=== PATIENT | female | born 1985 | race Caucasian/White ===

== ENCOUNTER 2020-08-23 18:26 | Emergency (ER) | payer OTHER ==
[2020-08-23 22:10] LABS: Urine Blood 2+ (NEG); Urine Glucose NEGATIVE (NEG); Urine Protein NEGATIVE (NEG); Urine Specific Gravity 1.025 (1.005-1.030); Urine pH 5.5 (5.0-7.0)
[2020-08-24] MEDS ORDERED: IBUPROFEN 400 MG TAB ONE (00:15)
[2020-08-24] MEDS ORDERED: ACETAMINOPHEN 500 MG TAB ONE (00:15)
[2020-08-24 00:19] LABS: SARS-COV-2 RT PCR POSITIVE (NEGATIVE)
--- NOTE | 2020-08-24 00:27 | EDPHYS ---
Physician Documentation [facility] Name: Itzel Del Rio Age: 35 yrs Sex: Female : 1985 Arrival Date: 08/23/2020 Time: 18:31 Bed 13 Private MD: ED Physician Malik Coello HPI: 08/23 21:10 This 35 yrs old Female presents to ER via Ambulatory with complaints of Pain cp All Over, Runny Nose, Congestion. 21:10 The patient or guardian reports cough, that is intermittent. Onset: The cp symptoms/episode began/occurred 2 day(s) ago. Associated signs and symptoms: Pertinent positives: fever, sore throat, generalized pain, body aches. 21:10 Patient referred to ED for COVID-19 testing and reports needs testing before she can cp return to work. Patient also reports bilateral anterior knee pain sustained from fall directly onto knees. Historical: - Allergies: 18:50 tramadol; ll1 - PMHx: 18:50 Anxiety; Bipolar disorder; PTSD; ll1 - PSHx: 18:50 Hernia repair; Hysterectomy; ll1 - Immunization history:: Flu vaccine is not up to date. - Social history:: Smoking status: Patient reports the use of cigarette tobacco products, smokes one pack cigarettes per day. ROS: 21:15 Constitutional: Positive for body aches, chills, Negative for fever, poor PO intake. cp 21:15 Eyes: Negative for injury, pain, redness, and discharge. cp 21:15 ENT: Positive for rhinorrhea, sore throat, Negative for drainage from ear(s), ear pain, difficulty swallowing, difficulty handling secretions. 21:15 Cardiovascular: Negative for chest pain, palpitations. 21:15 Respiratory: Positive for cough, Negative for shortness of breath, wheezing. 21:15 Abdomen/GI: Negative for abdominal pain, nausea, vomiting, and diarrhea. 21:15 MS/extremity: Positive for pain, of the left knee and right knee, Negative for decreased range of motion. 21:15 Skin: Negative for rash. 21:15 Neuro: Positive for headache, Negative for altered mental status, weakness. 21:15 All other systems are negative. Exam: 21:20 Constitutional: The patient appears in no acute distress, alert, awake, non-toxic, well cp developed, well nourished, obese, uncomfortable. 21:20 Head/Face: Normocephalic, atraumatic. cp 21:20 Eyes: Periorbital structures: appear normal, Conjunctiva: normal, no exudate, no injection, Sclera: no appreciated abnormality, Lids and lashes: appear normal, bilaterally. 21:20 ENT: External ear(s): are unremarkable, Ear canal(s): are normal, clear, TM's: dullness, bilaterally, Nose: is normal, Mouth: Lips: moist, Oral mucosa: moist, Posterior pharynx: Airway: no evidence of obstruction, patent, Tonsils: no enlargement, no exudate, swelling, is not appreciated, erythema, that is mild, exudate, is not appreciated. 21:20 Neck: ROM/movement: Meningeal signs: are not present, Lymph nodes: no appreciated lymphadenopathy. 21:20 Chest/axilla: Inspection: normal, Palpation: is normal, no crepitus, no tenderness. 21:20 Cardiovascular: Rate: tachycardic, Rhythm: regular, Edema: is not appreciated. 21:20 Respiratory: the patient does not display signs of respiratory distress, Respirations: normal, no use of accessory muscles, no retractions, labored breathing, is not present, Breath sounds: are clear throughout, no decreased breath sounds, no stridor, no wheezing. 21:20 Abdomen/GI: Exam negative for discomfort, distension, guarding, Inspection: abdomen appears normal. 21:20 Back: CVA tenderness, is absent. 21:20 Musculoskeletal/extremity: Extremities: grossly normal except: noted in the anterior aspect of left knee and right knee: ecchymosis, pain, tenderness, There is no evidence of decreased ROM, deformity, ROM: limited active range of motion due to pain, in the left knee and right knee, Weight bearing: able to fully bear weight. 21:20 Skin: cellulitis, is not appreciated, no rash present. 21:20 Neuro: Orientation: is normal, Mentation: is normal, Motor: moves all fours, strength is normal. Vital Signs: 18:43 BP 113 / 71; Pulse 103; Resp 17; Temp 99.5; Pulse Ox 99% ; Weight 105.23 kg; Height 5 ll1 ft. 5 in. (165.10 cm); Pain 10/10; 23:14 BP 111 / 69; Pulse 85; Resp 16; Pulse Ox 99% on R/A; iw 18:43 Body Mass Index 38.61 (105.23 kg, 165.10 cm) ll1 Procedures: 08/24 00:00 Splinting: Splint applied to right knee using knee immobilizer, applied by nurse. cp Examined by me, post splint application: neurovascular intact, Patient tolerated well. MDM: 08/23 20:55 Patient medically screened. cp 08/24 00:25 Data reviewed: vital signs, nurses notes, lab test result(s), radiologic studies, plain cp films. 00:25 Test interpretation: by ED physician or midlevel provider: plain radiologic studies. cp Counseling: I had a detailed discussion with the patient and/or guardian regarding: the historical points, exam findings, and any diagnostic results supporting the discharge/admit diagnosis, lab results, radiology results, to return to the emergency department if symptoms worsen or persist or if there are any questions or concerns that arise at home. Response to treatment: the patient's symptoms have markedly improved after treatment. 08/23 21:04 Order name: COVID-19 : Document "Date of Symptom Onset" if Symptomatic. 08/23 21:04 Order name: Strep cp 08/23 21:32 Order name: Urine Dipstick--Ancillary (enter results) [facility] 08/23 21:32 Order name: Urine --Ancillary (enter results) [facility] 08/23 21:04 Order name: XRAY Knee RIGHT 3 view 08/23 21:04 Order name: XRAY Knee LEFT 3 view 08/23 21:04 Order name: Urine Dipstick-Ancillary (obtain specimen); Complete Time: 21:24 08/23 21:33 Order name: Urine Dipstick-Ancillary; Complete Time: 22:39 EDKS 08/23 21:33 Order name: Urine --Ancillary; Complete Time: 22:39 EDKS 08/24 00:19 Order name: COVID-19/FLU A+B; Complete Time: 00:20 EDKS 08/23 21:04 Order name: Urine Test (obtain specimen); Complete Time: 21:24 08/23 22:47 Order name: Knee Immobilizer: right knee; Complete Time: 00:06 08/23 22:47 Order name: Crutches; Complete Time: 00:07 cp Administered Medications: 00:06 Drug: Motrin 800 mg Route: PO; iw 00:40 Follow up: Response: No adverse reaction iw 00:06 Drug: Tylenol 1000 mg Route: PO; iw 00:35 Follow up: Response: No adverse reaction; Pain is decreased iw Disposition: 06:50 Co-signature as Attending Physician, Malik Coello MD I agree with the assessment and prerna plan of care. Disposition: 08/24/20 00:26 Discharged to Home. Impression: Coronavirus infection, unspecified, Displaced fracture of right tibial spine. - Condition is Stable. - Discharge Instructions: Tibial Fracture, Adult, Upper Respiratory Infection, Adult, COVID-19. - Prescriptions for Ibuprofen 800 mg Oral Tablet - take 1 tablet by ORAL route every 8 hours As needed take with food; 30 tablet. Zithromax Z- Tha 250 mg Oral Tablet - take 1 tablet by ORAL route as directed for 5 days Day 1 - take two (2) tablets one time. Day 2, 3, 4 , 5 take one (1) tablet once daily.; 6 tablet. Albuterol Sulfate 90 mcg/actuation - inhale 1-2 puff by INHALATION route every 4-6 hours; 1 Inhaler. - Work release form, Medication Reconciliation Form, Thank You Letter, Antibiotic Education, Prescription Opioid Use form. - Follow up: Private Physician; When: 2 - 3 days; Reason: Worsening of condition. - Problem is new. - Symptoms have improved. Signatures: Dispatcher [employer] EDKS Malik Coello MD MD cha Williams, Irene, RN RN Malik Remy PA PA cp Lewis, Lynsay, RN RN ll1 Corrections: (The following items were deleted from the chart) 08/23 22:25 21:04 CORONAVIRUS ordered. [facility] 22:25 21:05 Influenza Screen (A \\T\\ B)+[id number] ordered. [facility] 08/24 00:57 00:26 08/24/2020 00:26 Discharged to Home. Impression: Coronavirus infection, iw unspecified; Displaced fracture of right tibial spine. Condition is Stable. Forms are Medication Reconciliation Form, Thank You Letter, Antibiotic Education, Prescription Opioid Use. Follow up: Private Physician; When: 2 - 3 days; Reason: Worsening of condition. Problem is new. Symptoms have improved. cp
--- NOTE | 2020-08-24 00:27 | ER ---
Nurse's Notes [facility] Name: Itzel Del Rio Age: 35 yrs Sex: Female : 1985 Arrival Date: 08/23/2020 Time: 18:31 Bed 13 Private MD: Diagnosis: Coronavirus infection, unspecified;Displaced fracture of right tibial spine Presentation: 08/23 18:43 Chief complaint: Patient states: Congestion, cough, ESQUIVEL, body aches, fever of 104, ll1 fatigue, skin sensitivity and pain for 2 days, worse today. Needs covid test before returning to work. Coronavirus screen: Client denies travel out of the [place] in the last 14 days. chills, congestion, cough unrelated to allergies, difficulty breathing, fatigue, fever, headache, muscle pain, nausea, runny nose, shaking with chills, shortness of breath, sore throat, Client presents with at least one sign or symptom that may indicate coronavirus-19. Standard/surgical mask placed on the client. Ebola Screen: Patient denies travel to an Ebola-affected area in the 21 days before illness onset. Resp Distress? No respiratory distress is noted at this time. Initial Sepsis Screen: Does the patient meet any 2 criteria? HR > 90 bpm. No. Patient's initial sepsis screen is negative. Does the patient have a suspected source of infection? Yes: Productive cough/pneumonia. Risk Assessment: Do you want to hurt yourself or someone else? Patient reports no desire to harm self or others. Onset of symptoms was August 22, 2020. 18:43 Method Of Arrival: Ambulatory ll1 18:43 Acuity: HANANE 3 ll1 Historical: - Allergies: 18:50 tramadol; ll1 - PMHx: 18:50 Anxiety; Bipolar disorder; PTSD; ll1 - PSHx: 18:50 Hernia repair; Hysterectomy; ll1 - Immunization history:: Flu vaccine is not up to date. - Social history:: Smoking status: Patient reports the use of cigarette tobacco products, smokes one pack cigarettes per day. Screenin:43 Abuse screen: Denies threats or abuse. Denies injuries from another. Nutritional iw screening: No deficits noted. Tuberculosis screening: No symptoms or risk factors identified. Fall Risk None identified. Assessment: 21:43 General: Appears in no apparent distress. Behavior is calm, cooperative. General: iw Reports fever for feeling ill for fatigue for. Pain: Complains of pain in all over body. Neuro: Level of Consciousness is awake, alert, obeys commands, Oriented to person, place, time, situation. Cardiovascular: Patient's skin is warm and dry. Respiratory: Respiratory effort is even, unlabored, Respiratory pattern is regular, symmetrical, Breath sounds are clear bilaterally. GI: Reports nausea. Derm: Skin is intact, is healthy with good turgor. Musculoskeletal: Range of motion: intact in all extremities. 08/24 00:47 Reassessment: Patient appears in no apparent distress at this time. Patient and/or iw family updated on plan of care and expected duration. Pain level reassessed. Patient is alert, oriented x 3, equal unlabored respirations, skin warm/dry/pink. Vital Signs: 08/23 18:43 BP 113 / 71; Pulse 103; Resp 17; Temp 99.5; Pulse Ox 99% ; Weight 105.23 kg; Height 5 ll1 ft. 5 in. (165.10 cm); Pain 10/10; 23:14 BP 111 / 69; Pulse 85; Resp 16; Pulse Ox 99% on R/A; iw 18:43 Body Mass Index 38.61 (105.23 kg, 165.10 cm) ll1 ED Course: 18:31 Patient arrived in ED. ds1 18:49 Triage completed. ll1 18:50 Arm band placed on. ll1 20:52 Malik Cartagena PA is PHCP. cp 20:52 Malik Coello MD is Attending Physician. cp 20:58 Mel Julien, NASIM is Primary Nurse. iw 21:59 XRAY Knee RIGHT 3 view In Process Unspecified. EDMS 21:59 XRAY Knee LEFT 3 view In Process Unspecified. EDMS 08/24 00:46 No provider procedures requiring assistance completed. Patient did not have IV access iw during this emergency room visit. Administered Medications: 00:06 Drug: Motrin 800 mg Route: PO; iw 00:40 Follow up: Response: No adverse reaction iw 00:06 Drug: Tylenol 1000 mg Route: PO; iw 00:35 Follow up: Response: No adverse reaction; Pain is decreased iw Outcome: 00:26 Discharge ordered by . cp 00:57 Patient left the ED. iw Signatures: Dispatcher [employer] EDVT Josefa Ernandez ds1 Mel Julien, RN RN iw Malik Cartagena PA PA cp Lewis, Lynsay, RN RN ll1
[2020-08-24 01:01] VITALS: TEMP 99.5; O2SAT 99
[2020-08-24 01:02] VITALS: BP 111/69
--- NOTE | 2020-08-24 08:44 | RAD REPORT ---
EXAM DESCRIPTION: RAD - Knee Left 3 View - 08/23/2020 9:59 pm CLINICAL HISTORY: PAIN COMPARISON: No comparisons FINDINGS: No bone or joint abnormality is detected.
--- NOTE | 2020-08-24 08:44 | RAD REPORT ---
EXAM DESCRIPTION: RAD - Knee Right 3 View - 08/23/2020 9:59 pm CLINICAL HISTORY: PAIN COMPARISON: No comparisons FINDINGS: No fracture, dislocation or joint effusion. Chronic bony fragmentation at the tibial tuber humphrey noted.
== END 2020-08-24 00:57 | disposition home or self-care (01) ==
LOC: ER 18:26
PROC: 2W3QX1Z Immobilization of Right Lower Leg using Splint (ICD-10-PCS; principal; 2020-08-24)
DX: U07.1 COVID-19 (principal); S82.141A Displaced bicondylar fracture of right tibia, initial encounter for closed fracture; W19.XXXA Unspecified fall, initial encounter; Z88.5 Allergy status to narcotic agent; F17.210 Nicotine dependence, cigarettes, uncomplicated
CPT/HCPCS: 87070; 81025; 87081; 81003; 0240U; 73562 ×2; 99283; 29515

== ENCOUNTER 2021-01-31 02:55 | Emergency (ER) | payer OTHER ==
--- OUTSIDE RECORDS SUMMARY | 2021-01-31 02:57 | XMS REPORT | Continuity of Care Document ---
:[address] [facility] t Address [address] [place] [address] Care Team Providers Name Role Phone Tyler Renae MD Primary Care Physician Eric MONTANA Attending Clinician Kendell Kaplan Attending Clinician Mahsa Parsons MD Attending Clinician Albertina VERDIN Attending Clinician Payers Payer Name Policy Type Policy Effective Date Expiration Date Sour ce Number MEDICAID - [id number] [address] [facility] MEDICAID MGD 00:00:00 - Medical [facility] Center STAR [id number]/2020-PresentMedic aid Contracted Problems Condition Condition Condition Status Onset Resolution Last Treating Co mments Source Name Details Category Date Date Treatment Clinician Date Closed Closed Disease Active [facility] - of tibial of tibial 00:00: Medi glenroy tuberosity tuberosity 00 Ce nter , sequela , sequela Sprain of Sprain of Problem Active 2015-06 [facility] anterior Anterior 2- da cruciate Cruciate 00:00: Medica l ligament Ligament 00 Group of knee of Knee Allergies, Adverse Reactions, Alerts Allergy Allergy Status Severity Reaction(s) Onset Inactive Treating Comm ents Source Name Type Date Date Clinician Tramadol Propensi Active Hives, [facility]a [facility] - adverse Vomiting 00:00: Medical reaction 00 Center s Social History Social Habit Start Date Stop Date Quantity Comments Source Sex Assigned At [facility] Exposure to Not sure [facility] - SARS-CoV-2 (event) [facility] Cigarettes smoked 2021-01-30 2021-01-30 [facility] - current (pack per 00:00:00 00:00:00 Medical Center day) - Reported Cigarette 2021-01-30 2021-01-30 [facility] - pack-years 00:00:00 00:00:00 [facility] Tobacco use and 2021-01-30 2021-01-30 Never used [facility] - exposure 00:00:00 00:00:00 [facility] Alcohol intake 2021-01-30 2021-01-30 Ex-drinker [facility] - 00:00:00 00:00:00 (finding) [facility] Smoking Status Start Date Stop Date Source Heavy Tobacco Smoker Kerry Barnes Current every day smoker 2021-01-30 00:00:00 [facility] Medications Ordered Filled Start Stop Current Ordering Indication Dosage Frequency Signature Comments Components Source Medication Medication Date Date Medication? Clinician (SIG) Name Name ibuprofen Yes 200mg Take [address] (ADVIL,MOTR 8-24 mg by Hanna - [place]) 200 MG 13:36: mouth Medica l tablet 47 every 6 Center (six) hours as needed for Pain. aspirin-christine 2020- Yes 1{tbl} Take [address] taminophen- 8-24 -03 tablet by Fior samayoa - caffeine 00:00: 23:59 mouth Medical (Excedrin 00 :00 every 6 Center Extra (six) Strength) hours as 250-250-65 needed for mg per Pain for tablet up to 10 days. Vital Signs Vital Name Observation Time Observation Value Comments Source BP Systolic 2020-10-03 00:00:00 136 mm[Hg] [facility] Body Weight 2020-10-03 00:00:00 220 [facility]lb_av[facility] BP Diastolic 2020-10-03 00:00:00 70 mm[Hg] [facility] Height 2020-10-03 00:00:00 65 [in_i] [facility] BMI (Body Mass 2020-10-03 00:00:00 36.6 kg/m2 [facility] media intern Medical Index) Group Systolic blood 2021-01-30 10:01:00 115 mm[Hg] [facility] Diastolic blood 2021-01-30 10:01:00 72 mm[Hg] [facility] Heart rate 2021-01-30 10:01:00 80 /min [facility] Respiratory rate 2021-01-30 10:01:00 18 /min [facility] Oxygen saturation in 2021-01-30 10:01:00 99 /min [facility] - Arterial blood by Medical Ce nter Pulse oximetry Body temperature 2021-01-30 08:56:00 36.89 Alondra [facility] Body height 2021-01-30 06:41:00 165.1 cm [facility] Body weight 2021-01-30 06:41:00 102.513 kg [facility] BMI 2021-01-30 06:41:00 37.61 kg/m2 [facility] Procedures Procedure Date / Time Performed Performing Clinician Sourc e [place] FLUORO NON-SPECIFIC 2021-01-30 08:40:00 Pato Kaplan [facility] - UP TO 1 HOUR [facility] SARS-COV2/RT-PCR ([facility] & 2021-01-25 09:21:00 Pato Kaplan [facility] - REF LABS) [facility] CBC W/PLT COUNT & AUTO 2021-01-25 09:21:00 Carlton Reyes [facility] DIFFERENTIAL [facility] XR KNEE 1 OR 2 VIEWS 2020-11-21 12:03:00 Geovanna Eng [facility] RIGHT [facility] XR KNEE 1 OR 2 VIEWS 2020-10-09 14:56:[address] [facility] Plan of Care Planned Activity Planned Date Details Comments Source Future Scheduled 2021-02-07 INFLUENZA VACCINE (#1) [facility] Test 00:00:00 [code = INFLUENZA Medical Ce nter VACCINE (#1)] Future Scheduled 2020-06-[address] [facility] - Test 00:00:00 (12+) [code = Medical Center DEPRESSION SCREENING (12+)] Future Scheduled 2008-02-[address] [facility] - Test 00:00:00 malignant neoplasm of Medica l Center cervix (procedure) [code = 241121970] Future Scheduled [address] [facility] - Test 00:00:00 (procedure) [code = Medical Center 65571036] Future Scheduled 2006 DTAP/TDAP/TD VACCINES [facility] Test 00:00:00 (1 - Tdap) [code = Medical C enter DTAP/TDAP/TD VACCINES (1 - Tdap)] Future Scheduled 2005 HEPATITIS C SCREENING [facility] - Test 00:00:00 [code = HEPATITIS C Medical Center SCREENING] Future Scheduled 1999 COVID-19 VACCINE (1) [facility] - Test 00:00:00 [code = COVID-[address] VACCINE (1)] Future Scheduled [address] [facility] - Test 00:00:00 0-64 YRS (1 of 1 - Medical C enter PPSV23) [code = PNEUMOCOCCAL VACCINE 0-64 YRS (1 of 1 - PPSV23)] Encounters Start End Encounter Admission Attending Care Care Encounter Source Date/Time Date/Time Type Type Clinicians Facility Department ID 2020-10-03 2020-10-03 [facility] [employer] [place] - [id number] M atagor 00:00:00 00:00:00 Discovery jamie Oshea MD: [address] [place] [address] Group [facility] [address], [place] [address] , Ph. Results Test Description Test Time Test Comments Results Result Sourc e Comments FL, FLUORO, 2021-01-30 Reason for NON-SPECIFIC, UP 08:40:00 exam:->[facility]UR[facility]K [facility]UÁREZ : 1985 Sex: F *Fluoroscopic unit utilized for a procedure performed in the OR. No interpretation was requested. Refer to the operative report for findings. Refer to PACS for patient radiation dose information. FL fluoro 2021-01-30 Interface, External [facility] non-specific up 08:40:00 Ris In - 01/30/2021 - Medical to 1 hour 8:47 AM Center CDTFluoroscopic unit utilized for a procedure performed in the OR. No interpretation was requested. Refer to the operative report for findings. Refer to PACS for patient radiation dose information. SARS-CoV2/RT-PCR (Asymptomatic ONLY) 2021-01-25 13:10:00 Test Item Value Reference Range Interpretation Comme nts SARS-COV2/RT-PCR (test Negative Negative The S ARS-CoV-2 target code = 58231-3) nucleic acid s are not detected in thi s specimen. Nega tive results do not preclude SARS-CoV-2 infe ction and should not be u sed as the sole basis for patient management deci sions. Negative result s must be combined with c linical observations, p atient history, and epidemiological information. A false negative result may occur if a specimen i s improperly nancy ected, transported or handled. This SARS CoV-2 test is a rapid, real-niyah e RT-PCR test intended f or the qualitative det ection of nucleic acid fr om SARS-CoV-2 in a nasopharyngeal swab specimen collec imelda from individuals forrest pected of COVID-[address] [employer] [facility] ider. CAROL (test code = CAROL) This test has been authorized by FDA under an EUA for use by authorized laboratories. This test is only authorized for the duration of the declaration that circumstances exist justifying the authorization of emergency use of in vitro diagnostic tests for detection and/or diagnosis of COVID-19 under Section 564(b)(1) of the Federal Food, Drug and Cosmetic Act, 21 U.S.C. 360bbb-3(b)(1), unless the authorization is terminated or revoked sooner. Fact Sheet for Healthcare Providers: https://www.[employer] /Documents/Xpert%20Xpre ss%20SARS%20CoV-2/Fact% 20Sheets/3023802%20SAR S-COV-2%20HEALTHCARE%20 PROVIDERS%20FACT%20SHEE T.pdf Fact Sheet for Healthcare Patients: https://www.[employer] /Documents/Xpert%20Xpre ss%20SARS%20CoV-2/Fact% 20Sheets/302-3801%20SAR S-COV-2%20PATIENT%20FAC T%20SHEET.pdf Lab Interpretation (test Normal code = 83720-3) [facility]2021-01-25 13:10:00 Test Item Value Reference Range Interpretation Comments SARS-COV2/RT-PCR Negative Negative The SARS-Co V-2 target (test code = nucleic acids a re not 6381519) detected in thi s specimen. Negative result s do not preclude SARS-C oV-2 infection and s hould not be used as the heidy e basis for patient managem ent decisions. Nega tive results must be combine d with clinical observ ations, patient history , and epidemiological information. A false negativ e result may occur if a spec imen is improperly nancy ected, transported or handled. This SARS CoV-2 test is a rapid, real-niyah e RT-PCR test intended for th e qualitative detection of nu cleic acid from SARS-CoV-2 in a nasopharyngeal swab specimen collected from individuals suspected of CO VID-19 by their healthcar e provider. This test has been authorized by FDA under an EUA for use by authorized laboratories. This test is only authorized for the duration of the declaration that circumstances exist justifying the authorization of emergency use of in vitro diagnostic tests for detection and/or diagnosis of COVID-19 under Section 564(b)(1) of the Federal Food, Drug and Cosmetic Act, 21 U.S.C. 360bbb- 3(b)(1), unless the authorization is terminated or revoked sooner. Fact Sheet for Healthcare Providers: https://www.[employer]/Documents/Xpert%20Xpress%20SARS%20CoV-2/Fact%20Sheets/302-3802%20SARS-COV -2%20HEALTHCARE%20PROVIDERS%20FACT%20SHEET.pdf Fact Sheet for Healthcare Patients: https://www.[employer]/Documents/Xpert %20Xpress%20SARS%20CoV-2/Fact%20Sheets/3023801%36WZFS-YLF-4%20PATIENT%20FACT%20 SHEET.pdfCBC with platelet count + automated [id number] 09:40:00 Test Item Value Reference Range Interpretation Comments WBC (test code = 6690-2) 9.0 See_Comment [A utomated message] The system [email or web address] generated this result transmitted ref erence range: 4.0 - 10 .0 K/L. The refe rence range was not u sed to interpret this result as normal/abnor mal. RBC (test code = 789-8) 4.98 See_Comment [Au tomated message] The system [email or web address] generated this result transmitted ref erence range: 4.00 - 5 .00 M/L. The refe rence range was not u sed to interpret this result as normal/abnor mal. MCHC (test code = 786-4) 33.9 See_Comment H [A utomated message] The system [email or web address] generated this result transmitted ref erence range: 32.0 - 3 6.0 GM/DL. The refe rence range was not u sed to interpret this result as normal/abnor mal. Hematocrit (test code = 46.6 % 36-46 H 4544-3) MCV (test code = 787-2) 93.6 fL 82-99 MCH (test code = 785-6) 31.7 pg 27-33 RDW (test code = 788-0) 12.2 % 12-15 Platelets (test code = 290 See_Comment [Aut omated message] 777-3) The system [email or web address] generated this result transmitted ref erence range: 150 - 43 0 K/CU MM. The referen ce range was not u sed to interpret this result as normal/abnor mal. MPV (test code = 11.3 fL 6-11.5 01668-2) nRBC (test code = 413) 0 See_Comment [Aut omated message] The system [email or web address] generated this result transmitted ref erence range: 0 - 0 /1 00 WBC. The refere nce range was not u sed to interpret this result as normal/abnor mal. % Neutros (test code = 47 % 429) % Lymphs (test code = 44 % 430) % Monos (test code = 7 % 431) % Eos (test code = 432) 1 % % Baso (test code = 437) 1 % # Neutros (test code = 4.25 See_Comment [Aut omated message] 670) The system [email or web address] generated this result transmitted ref erence range: 1.80 - 8 .00 K/L. The refe rence range was not u sed to interpret this result as normal/abnor mal. # Lymphs (test code = 3.91 See_Comment [Auto mated message] 414) The system [email or web address] generated this result transmitted ref erence range: 1.48 - 4 .50 K/L. The refe rence range was not u sed to interpret this result as normal/abnor mal. # Monos (test code = 0.64 See_Comment [Autom ated message] 415) The system [email or web address] generated this result transmitted ref erence range: 0.00 - 1 .30 K/L. The refe rence range was not u sed to interpret this result as normal/abnor mal. # Eos (test code = 416) 0.11 See_Comment [Au tomated message] The system [email or web address] generated this result transmitted ref erence range: 0.00 - 0 .50 K/L. The refe rence range was not u sed to interpret this result as normal/abnor mal. # Baso (test code = 417) 0.06 See_Comment [A utomated message] The system whic h generated this result transmitted ref erence range: 0.00 - 0 .20 K/L. The refe rence range was not u sed to interpret this result as normal/abnor mal. Immature 0 % 0-0 Granulocytes-Relative (test code = 2801) Lab Interpretation (test Abnormal code = 71557-1) [facility] W/PLT COUNT & AUTO [id number] 09:40:00 Test Item Value Reference Range Interpretation Comments WHITE BLOOD CELL COUNT (BEAKER) 9.0 K/ L 4.0-10.0 (test code = 775) RED BLOOD CELL COUNT (BEAKER) 4.98 M/ L 4.00-5.00 (test code = 761) HEMOGLOBIN (BEAKER) (test code = 15.8 GM/DL 12.0-15.5 H 410) HEMATOCRIT (BEAKER) (test code = 46.6 % 36.0-46.0 H 411) MEAN CORPUSCULAR VOLUME (BEAKER) 93.6 fL 82.0-99.0 (test code = 753) MEAN CORPUSCULAR HEMOGLOBIN 31.7 pg 27.0-33.0 (BEAKER) (test code = 751) MEAN CORPUSCULAR HEMOGLOBIN CONC 33.9 GM/DL 32.0-36.0 (BEAKER) (test code = 752) RED CELL DISTRIBUTION WIDTH 12.2 % 12.0-15.0 (BEAKER) (test code = 412) PLATELET COUNT (BEAKER) (test 290 K/CU MM 150-430 code = 756) MEAN PLATELET VOLUME (BEAKER) 11.3 fL 6.0-11.5 (test code = 754) NUCLEATED RED BLOOD CELLS 0 /100 WBC 0-0 (BEAKER) (test code = 413) NEUTROPHILS RELATIVE PERCENT 47 % (BEAKER) (test code = 429) LYMPHOCYTES RELATIVE PERCENT 44 % (BEAKER) (test code = 430) MONOCYTES RELATIVE PERCENT 7 % (BEAKER) (test code = 431) EOSINOPHILS RELATIVE PERCENT 1 % (BEAKER) (test code = 432) BASOPHILS RELATIVE PERCENT 1 % (BEAKER) (test code = 437) NEUTROPHILS ABSOLUTE COUNT 4.25 K/ L 1.80-8.00 (BEAKER) (test code = 670) LYMPHOCYTES ABSOLUTE COUNT 3.91 K/ L 1.48-4.50 (BEAKER) (test code = 414) MONOCYTES ABSOLUTE COUNT (BEAKER) 0.64 K/ L 0.00-1.30 (test code = 415) EOSINOPHILS ABSOLUTE COUNT 0.11 K/ L 0.00-0.50 (BEAKER) (test code = 416) BASOPHILS ABSOLUTE COUNT (BEAKER) 0.06 K/ L 0.00-0.20 (test code = 417) IMMATURE GRANULOCYTES-RELATIVE 0 % 0-0 PERCENT (BEAKER) (test code = 2801) XR knee 1 or 2 views [id number] 12:03:00Lateral views at 60 and 90 degrees of the right knee are reviewed. 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 There is no change noted from her previous radiographs from 10/09/2020.[facility]
--- NOTE | 2021-01-31 03:12 | ER ---
Nurse's Notes [facility] Name: Itzel Del Rio Age: 35 yrs Sex: Female : 1985 Arrival Date: 01/31/2021 Time: 02:56 Bed Waiting Private MD: Diagnosis: Presentation: 01/31 03:11 Note notified by registration pt did not want to wait so she left the ED. bb ED Course: 02:56 Patient arrived in ED. bp1 Administered Medications: No medications were administered Outcome: 03:12 Patient left the ED. bb Signatures: Sarah Shaw RN RN bb Radha Nowak bp1
== END 2021-01-31 03:12 | disposition left against medical advice (07) ==
LOC: ER 02:55
DX: Z02.9 Encounter for administrative examinations, unspecified (principal)

== ENCOUNTER 2022-05-02 20:55 | Emergency (ER) | payer OTHER ==
--- OUTSIDE RECORDS SUMMARY | 2022-05-02 20:59 | XMS REPORT | Continuity of Care Document ---
:1985 Author Organization [facility] t Address [address] [place] [address] Care Team Providers Name Role Phone LUZ MILLS Primary Care Physician Unavailable RAJEEV POE Attending Clinician Unavailable A_Bykevin Attending Clinician Unavailable Rajeev Poe Attending Clinician ISABEL Attending Clinician Unavailable Anderson Attending Clinician Unavailable AQUILINO JI Attending Clinician Unavailable Eric [place], Carlton Attending Clinician Chace Parsons MD Attending Clinician Aquilino Kovacs Attending Clinician Estephania Attending Clinician Unavailable Venkat_Valentin Attending Clinician Unavailable RAJEEV POE Admitting Clinician Unavailable Freddie_Bykevin Admitting Clinician Unavailable ISABEL Admitting Clinician Unavailable Ya_Olivia Admitting Clinician Unavailable Estephania Admitting Clinician Unavailable Brigid Admitting Clinician Unavailable Payers Payer Name Policy Type Policy Number Effective Date Expiration Date Maribell mckeon [facility] [id number] 2020 PLAN 00:00:00 [facility] [id number] 2015 COMMUNITY PL[place] OF 00:[place]00 [place] Problems Condition Condition Condition Status Onset Resolution Last Treating Co mments Source Name Details Category Date Date Treatment Clinician Date Insect Insect Problem Active [place] to Bite to 4-28 da leg - Leg - 00:00: Medical nonvenomou Nonvenomou 00 Gr oup s s Edema of Edema of Problem Active [place] lower Lower 4-20 da extremity Extremity 00:00: Medi [place]en[place] 00 Group Dyspnea Dyspnea Problem Active [place] 4-20 da 00:00: Medical 00 Group Cigarette Cigarette Problem Active [place] smoker Smoker 4-20 da 00:00: Medical 00 Group Body mass Body Mass Problem Active [place] index 30+ Index 30+ 4-20 da - obesity - Obesity 00:00: Medi [place] 00 Group Closed Closed Disease Active [facility] tibial of tibial 00:00: Medi [place] tuberosity tuberosity 00 Ce nter , sequela , sequela Sprain of Sprain of Problem Active 2015-06 [place] anterior Anterior 2-01 da cruciate Cruciate 00:00: Medica l ligament Ligament 00 Group of knee of Knee Bipolar Bipolar Problem Active [place] disorder Disorder da Medical Group Depressive Depressive Problem Active M [facility] disorder Disorder da [facility] Allergies, Adverse Reactions, Alerts Allergy Allergy Status Severity Reaction(s) Onset Inactive Treating Comm ents Source Name Type Date Date Clinician Tramadol Propensi Active Hives, [facility] to Nausea And 5-03 [facility] adverse Vomiting 00:00: Medical reaction 00 Center s TRAMADOL Allergy Active High Hives [facility] 5-03 00:00: 00 Tramadol Allergy Active Severe, Hives, [place] to Severe Vomiting da substan Medical e Group Social History Social Habit Start Date Stop Date Quantity Comments Source Exposure to Not sure [facility] SARS-CoV-2 (event) Medica [facility] Alcohol intake 2022-04-01 2022-04-01 Ex-drinker [facility] 00:[facility]:00 00:00:00 (finding) [facility] [place] Tobacco use and 2020-10-09 2020-10-[address] [facility] [address] Fior kes exposure 00:00:00 00:00:00 [facility] [place] Cigarettes smoked 2020-10-09 2020-10-09 NARCISO Cristina current (pack per 00:00:00 00:00:00 Medical Center day) - Reported Cigarette 2020-10-09 2020-10-[address] [facility] pack-years 00:00:00 00:00:00 [facility] Center Sex Assigned At [birth year] [facility] yao 00:00:00 00:00:00 Medical Center Smoking Status Start Date Stop Date Source Heavy Tobacco Smoker Kerry Barnes Current every day smoker 2020-10-09 00:00:00 [facility] Medications Ordered Filled Start Stop Current Ordering Indication Dosage Frequency Signature Comments Components Source Medication Medication Date Date Medication? Clinician (SIG) Name Name ibuprofen 2020-06 Yes 200mg Take [address] [facility] (ADVIL,MOTR 0-22 mg by F[place]) 200 MG 14:21: mouth Medica l tablet 21 every 6 Center (six) hours as needed for Pain. triamcinolo S/p tibial Q.5D Apply [facility] ne 02-08 fracture topically [facility] (KENALOG) 00:00: 23:59 2 (two) Medi [place]en[place] 0.1 % 00 :00 times Center topical daily. ointment HYDROcodone Yes Closed 1{tbl} Take 1-[address] -acetaminop 8-31 fracture of tablets by Hanna hen (NORCO 00:00: tibial mouth Medi glenroy 10-325) 00 tuberosity, every 6 Ce nter 10-325 mg sequela (six) per tablet hours as needed for Pain for up to 10 doses. Max Daily Amount: 8 tablets ibuprofen Yes 200mg Take [address] (ADVIL,MOTR 8-24 mg by [place]) 200 MG 13:36: mouth Medica l tablet 47 every 6 Center (six) hours as needed for Pain. aspirin-christine 2020- No 1{tbl} Take [address] taminophen- 8-24 02-09 tablet by Fior samayoa caffeine 00:00: 23:59 mouth Medical (Excedrin 00 :00 every 6 Center Extra (six) Strength) hours as 250-250-65 needed for mg per Pain for tablet up to 10 days. acetaminoph acetaminoph No acetaminop [place] en 300 en 300 hen 300 da mg-codeine mg-codeine mg-codeine Medical 30 mg 30 mg 30 mg Group tablet 1-2 tablet 1-2 tablet 1-2 tabs p.o. q tabs p.o. q tabs p.o. 6 hours PRN 6 hours PRN q 6 hours pain pain PRN pain amoxicillin amoxicillin No amoxicilli [place] [phone] 875 da mg-potassiu mg-potassiu mg-potassi Medical m m um Group clavulanate clavulanate clavulanat 125 mg 125 mg e 125 mg tablet Take tablet Take tablet 1 tablet 1 tablet Take 1 every 12 every 12 tablet hours by hours by every 12 oral route oral route hours by for 7 days. for 7 days. oral route for 7 days. gabapentin gabapentin No 1capsul BID gabapentin [place] 300 mg 300 mg e(s) 300 mg da capsule capsule capsule Medica l Take 1 Take 1 Take 1 Group capsule capsule capsule twice a day twice a day twice a by oral by oral day by route for route for oral route 30 days. 30 days. for 30 days. ibuprofen ibuprofen No ibuprofen [place] 800 mg 800 mg 800 mg da tablet Take tablet Take tablet Medical 1 tablet 1 tablet Take 1 Group every 8 every 8 tablet hours by hours by every 8 oral route oral route hours by for 15 for 15 oral route days. days. for 15 days. sulfamethox sulfamethox No sulfametho [place] azole 800 azole 800 xazole 800 da mg-trimetho mg-trimetho mg-trimeth Medical prim 160 mg prim 160 mg oprim 160 Group tablet Take tablet Take mg tablet 1 tablet 1 tablet Take 1 every 12 every 12 tablet hours by hours by every 12 oral route oral route hours by for 10 for 10 oral route days. days. for 10 days. Trileptal Trileptal No 1 BID Trileptal [place] 300 mg 300 mg 300 mg da tablet Take tablet Take tablet Medical 1 tablet 1 tablet Take 1 Group twice a day twice a day tablet by oral by oral twice a route. route. day by oral route. Zoloft 50 Zoloft 50 No 1 BID Zoloft 50 [place] mg tablet mg tablet mg tablet da Take 1 Take 1 Take 1 Medical tablet tablet tablet Group twice a day twice a day twice a by oral by oral day by route. route. oral route. Vital Signs Vital Name Observation Time Observation Value Comments Source HEIGHT 2021-01-30 06:41:00 165.1 cm WEIGHT 2021-01-30 06:41:00 102.513 kg WEIGHT 2021-01-23 08:48:00 102.513 kg HEIGHT 2021-01-23 08:48:00 165.1 cm BP Diastolic 2021-10-04 00:00:00 78 mm[Hg] [facility] Height 2021-10-04 00:00:00 65 [in_i] [facility] BMI (Body Mass 2021-10-04 00:00:00 45.6 kg/m2 [facility] Medical Index) Group BP Systolic 2021-10-04 00:00:00 117 mm[Hg] [facility] Body Weight 2021-10-04 00:00:00 4384 [oz_av] [facility] BP Diastolic 2021-09-28 00:00:00 72 mm[Hg] [facility] Height 2021-09-28 00:00:00 65 [in_i] [facility] BMI (Body Mass 2021-09-28 00:00:00 45.6 kg/m2 [facility] Medical Index) Group BP Systolic 2021-09-28 00:00:00 118 mm[Hg] [facility] Body Weight 2021-09-28 00:00:00 4384 [oz_av] [facility] BP Diastolic 2021-09-26 00:00:00 80 mm[Hg] [facility] Height 2021-09-26 00:00:00 65 [in_i] [facility] BMI (Body Mass 2021-09-26 00:00:00 45.6 kg/m2 [facility] Medical Index) Group BP Systolic 2021-09-26 00:00:00 120 mm[Hg] [facility] Body Weight 2021-09-26 00:00:00 4384 [oz_av] [facility] BP Diastolic 2021-07-04 00:00:00 81 mm[Hg] [facility] Height 2021-07-04 00:00:00 65 [in_i] [facility] BMI (Body Mass 2021-07-04 00:00:00 40.8 kg/m2 [facility] Medical Index) Group BP Systolic 2021-07-04 00:00:00 124 mm[Hg] [facility] Body Weight 2021-07-04 00:00:00 245.2 [facility]lb_av] [facility] BP Diastolic 2021-04-17 00:00:00 80 mm[Hg] [facility] Height 2021-04-17 00:00:00 65 [in_i] [facility] BMI (Body Mass 2021-04-17 00:00:00 39.1 kg/m2 [facility] Medical Index) Group BP Systolic 2021-04-17 00:00:00 117 mm[Hg] [facility] Body Weight 2021-04-17 00:00:00 235.2 [lb_av] [facility] HEIGHT 2021-02-23 10:38:00 165.1 cm WEIGHT 2021-02-23 10:38:00 105.235 kg HEIGHT 2021-02-08 15:42:00 165.1 cm WEIGHT 2021-02-08 15:42:00 106.595 kg HEIGHT 2021-01-30 06:41:00 165.1 cm WEIGHT 2021-01-30 06:41:00 102.513 kg WEIGHT 2021-01-23 08:48:00 102.513 kg HEIGHT 2021-01-23 08:48:00 165.1 cm WEIGHT 2020-12-15 10:17:00 105.688 kg HEIGHT 2020-12-15 10:17:00 165.1 cm HEIGHT 2020-11-21 09:57:00 165.1 cm WEIGHT 2020-11-21 09:57:00 104.327 kg HEIGHT 2020-10-09 10:02:00 165.1 cm WEIGHT 2020-10-09 10:02:00 98.431 kg BP Diastolic 2020-10-03 00:00:00 70 mm[Hg] [facility] Height 2020-10-03 00:00:00 65 [in_i] [facility] BMI (Body Mass 2020-10-03 00:00:00 36.6 kg/m2 [facility]) Group BP Systolic 2020-10-03 00:00:00 136 mm[Hg] [facility] Body Weight 2020-10-03 00:00:00 220 [lb_av] [facility] Systolic blood 2022-04-01 08:06:00 112 mm[Hg] [facility] Diastolic blood 2022-04-01 08:06:00 86 mm[Hg] [facility] Heart rate 2022-04-01 08:06:00 108 /min [facility] Body temperature 2022-04-01 08:06:00 36.67 [facility] Body height 2022-04-01 08:06:00 165.1 cm [facility] Body weight 2022-04-01 08:06:00 105.235 kg [facility] BMI 2022-04-01 08:06:00 38.61 kg/m2 [facility] Systolic blood 2021-01-30 10:01:00 115 mm[Hg] [facility] Diastolic blood 2021-01-30 10:01:00 72 mm[Hg] [facility] Heart rate 2021-01-30 10:01:00 80 /min [facility] Respiratory rate 2021-01-30 10:01:00 18 /min [facility] Oxygen saturation in 2021-01-30 10:01:00 99 /min [facility] Arterial blood by Medical Ce nter Pulse oximetry Body temperature 2021-01-30 08:56:00 36.89 [facility] Body height 2021-01-30 06:41:00 165.1 cm [facility] Body weight 2021-01-30 06:41:00 102.513 kg [facility] BMI 2021-01-30 06:41:00 37.61 kg/m2 [facility] Procedures Procedure Date / Time Performing Clinician Source Performed unlisted imaging order 2021-09-26 00:00:00 Tommie Sanders [facility] US, transvaginal 2021-07-04 00:00:00 Kerry menezes Group [place] FLUORO NON-SPECIFIC 2021-01-30 08:40:00 Rajeev Poe [place] [facility] UP TO 1 HOUR Center SARS-COV2/RT-PCR ([facility] & 2021-01-25 09:21:00 Rajeev Poe [place] [facility] REF LABS) Center CBC W/PLT COUNT & AUTO 2021-01-25 09:21:00 Carlton Reyes [place] [facility] DIFFERENTIAL Center XR KNEE 1 OR 2 VIEWS 2020-11-21 12:03:00 Cadenceasuncion Aquilino [facility] [place] [facility] RIGHT Center XR KNEE 1 OR 2 VIEWS 2020-10-09 14:56[facility] [place] [facility] RIGHT Center Knee Arthroscopy/surgery [facility] Plan of Care Planned Activity Planned Date Details Comments Source Future Scheduled 2022-02-07 INFLUENZA VACCINE (#1) [facility] 00:00:00 [code = INFLUENZA Medical Ce nter VACCINE (#1)] Future Scheduled 2021-06-[address] [facility] Test 00:00:00 (12+) [code = [facility] Center DEPRESSION SCREENING (12+)] Future Scheduled 2021-02-07 INFLUENZA VACCINE (#1) [facility] Test 00:00:00 [code = INFLUENZA Medical Ce nter VACCINE (#1)] Future Scheduled 2020-06-[address] [facility] Test 00:00:00 (12+) [code = [facility] Center DEPRESSION SCREENING (12+)] Future Scheduled 2008-02-[address] [facility] Test 00:00:00 malignant neoplasm of Medica l Center cervix (procedure) [code = 452868842] Future Scheduled 2008-02-[address] [facility] Test 00:00:00 malignant neoplasm of Medica l Center cervix (procedure) [code = 900272378] Future Scheduled [address] [facility] Test 00:00:00 (procedure) [code = [facility] 53220946] Future Scheduled [address] [facility] Test 00:00:00 (procedure) [code = Medical Center 23408743] Future Scheduled 2006 DTAP/TDAP/TD VACCINES [facility] Test 00:00:00 (1 - Tdap) [code = Medical C enter DTAP/TDAP/TD VACCINES (1 - Tdap)] Future Scheduled 2006 DTAP/TDAP/TD VACCINES [facility] Test 00:00:00 (1 - Tdap) [code = Medical C enter DTAP/TDAP/TD VACCINES (1 - Tdap)] Future Scheduled 2005 HEPATITIS C SCREENING [facility] Test 00:00:00 [code = HEPATITIS C Medical Center SCREENING] Future Scheduled 2005 HEPATITIS C [facility]CRE[facility]ING [facility] Test 00:00:00 [code = HEPATITIS C Medical Center SCREENING] Future Scheduled 1999 COVID-19 VACCINE (1) [facility] Test 00:00:00 [code = COVID-[address] VACCINE (1)] Future Scheduled [address] [facility] Test 00:00:00 Counseling and Medical Cente r Screening (12+) [code = Tobacco Cessation Counseling and Screening (12+)] Future Scheduled [address] [facility] Test 00:00:00 0-64 YRS (1 of 1 - Medical C enter PPSV23) [code = PNEUMOCOCCAL VACCINE 0-64 YRS (1 of 1 - PPSV23)] Future Scheduled [address] [facility] Test 00:00:00 0-64 YRS (1 - PCV) Medical C enter [code = PNEUMOCOCCAL VACCINE 0-64 YRS (1 - PCV)] Future Scheduled 1987 COVID-19 VACCINE (#1) [facility] Test 00:00:00 [code = COVID-[address] VACCINE (#1)] Encounters Start End Encounter Admission Attending Care Care Encounter Source Date/Time Date/Time Type Type Clinicians Facility Department ID 2021-03-18 Outpatient LUI, [facility] Surgery [id number] [facility] 07:00:53 RAJEEV 2022-04-23 2022-04-23 [id number] [place] 00:00:00 00:00:00 1115 [facility] Group 2022-04-01 2022-04-01 Travel [facility] [id number] [facility] 00[facility]00 [facility] 2022-03-30 2022-03-30 Outpatient EL LUI, [facility] [id number] 15:50:00 16:01:[address] [place] [address] 2022-03-20 2022-03-30 Office Lui, [facility] [id number] 08:30:00 16:01:12 Visit Rajeev 2 [facility] 2021-12-18 2021-12-18 Outpatient DESAI_[facility] [id number] [place] 02:39:00 02:39:00 H 0712 [facility] Program 2021-10-04 2021-10-04 Outpatient A_Byrd [facility] [id number] [place] 12:07:00 12:07:00 0428 Medical Group 2021-10-04 2021-10-04 Luz Dickens [facility] [place] - [id number] M at[facility]or 00:00:00 00:00:00 MD Oc: Discovery ayala [address] [place] [phone] , Ph. 2021-10-01 2021-10-01 Outpatient A_Byrd [facility] [id number] [place] 06:49:00 06:49:00 0425 Medical Group 2021-09-28 2021-09-28 Outpatient A_Byrd [facility] [id number] [place] 04:20:00 04:20:00 0422 [facility] Group 2021-09-28 2021-09-28 Liane [facility] [place] - [id number] M at[place] 00:00:00 00:00:00 Karon Sesay [facility]: [address] [place] [phone] , Ph. 2021-09-26 2021-09-26 Outpatient A_Byrd [facility] [id number] [place] 11:16:00 11:16:00 0420 [facility] 2021-09-26 2021-09-26 Luz Chrissie [facility]G [place] - [id number] M at[place] 00:00:00 00:00:00 MD Oc: Discovery ayala [address] [place] [address] - [address] [phone] , Ph. 2021-07-04 2021-07-04 Outpatient Rutledge_L MMG MMG [id number] [place] 05:29:00 05:29:00 0126 Medical Group 2021-07-04 2021-07-04 Outpatient Rutledge_L MMG MMG [id number] [place] 05:29:00 05:29:00 0128 da Medical Group 2021-07-04 2021-07-04 Outpatient Rutledge_L MMG MMG [id number] [place] 05:29:00 05:29:00 0413 Medical Group 2021-07-04 2021-07-04 Tara [facility] [place] - [id number] M at[place] 00:00:00 00:00:00 Discovery jamie Lorenz [facility]-: [address], [place] [address] , Ph. [phone] 2021-06-18 2021-06-18 Outpatient Rutledge_L MMG MMG [id number] [place] 02:53:00 02:53:00 0110 Medical Group 2021-05-07 2021-05-[address] [facility] [id number] 00:00:00 00:00:00 Only [facility] 2021-05-07 2021-05-[address] [facility] [id number] 00:00:00 00:00:00 [facility] 2021-04-17 2021-04-17 Outpatient Rutledge_L MMG MMG [id number] [place] 02:25:00 02:25:00 1109 [facility] 2021-04-17 2021-04-17 Yessenia MMG [place] - [id number] M atagor 00:00:00 00:00:00 Marilyn Garcia Medica olivia [place]: [address] [facility] [address], [place] [address] , Ph. [phone] 2021-04-16 2021-04-16 Outpatient Ya_Olivia MMG MM [id number] [facility] 09:41:00 09:41:00 1108 [facility] 2021-04-13 2021-04-13 Outpatient SANDESARA, [facility] [id number] 00:00:00 00:00:00 [facility] 2021-03-30 2021-03-30 Outpatient FOREIGNESARA, [facility] [id number] 13:33:55 14:30:09 [facility] 2021-03-23 2021-03-23 Outpatient SANDESARA, [facility] [id number] 00:00:00 00:00:00 [facility] 2021-02-23 2021-02-23 Outpatient SANDESARA, [facility] [id number] 00:00:00 00:00:00 [facility] 2021-02-13 2021-02-13 Outpatient FOREIGNESARA, [facility] [id number] 00:00:00 00:00:00 [facility] 2021 2021 Outpatient LUI, [facility] [id number] 00:00:00 00:00:00 [facility] 2021-02-08 2021-02-08 Outpatient LUI, [facility] [id number] 00:00:00 00:00:00 [facility] 2021-01-25 2021-01-25 Outpatient EL SLSL [facility] [id number] [facility] 00:00:00 00:00:00 2020-12-05 2020-12-05 Outpatient A_Byrd MMG MMG [id number] [place] 05:54:00 05:54:00 0629 [facility] 2020-11-24 2020-11-24 Outpatient cMcDonald MMG MMG [id number] [place] 03:02:00 03:02:00 0618 [facility] 2020-10-04 2020-10-04 Outpatient cMcDonald MMG MMG [id number] [place] 04:10:00 04:10:00 0428 [facility] 2020-10-03 2020-10-03 Outpatient cMcDonald MMG MMG [id number] [place] 04:02:00 04:02:00 0427 [facility] 2020-10-03 2020-10-03 Dimitry MM [place] - [id number] M atagor 00:00:00 00:00:00 Discovery jamie Oshea MD: [address] [facility] [address], [place] [address] , Ph. 2020-08-31 2020-08-31 [place] [id number] [place] 12:36:00 12:36:00 0325 [facility] 2020-07-07 2020-07-07 Outpatient Rutledge_L MMG MMG [id number] [place] 02:40:00 02:40:00 0129 [facility] 2020-07-07 2020-07-07 Outpatient Rutledge_L MMG MMG [id number] [place] 02:40:00 02:40:00 0323 [facility] 2020-03-28 2020-03-28 Outpatient A_Byrd MMG MMG [id number] [place] 09:25:00 09:25:00 1020 [facility] 2020-03-22 2020-03-22 Outpatient C_Hall MMG MMG [id number] [place] 03:06:00 03:06:00 1014 [facility] Results Test Description Test Time Test Comments Results Result Comments Source Urinalysis complete W Reflex Culture panel - Urine 2021-09-08 0 07:30:00 Test Item Value Reference Range Interpretation Comme nts Color of Urine by Auto (test code = 92320-7) light yellow Appearance of Urine (test code = 5767-9) clear clear Glucose [Presence] in Urine by Automated test strip negative ne gative (test code = 45430-6) Bilirubin.total [Mass/volume] in Urine (test code = negative ne gative 1977-11) Ketones [Mass/volume] in Urine by Automated test strip negative negative (test code = 89093-8) Specific gravity of Urine by Automated test strip (test 1.026 1.003-1.030 code = 69144-4) blood urine (test code = blood urine) negative negative pH of Urine (test code = 2756-5) 7.500 5-9 protein urine (UA) (test code = protein urine (UA)) negative ne gative Urobilinogen [Presence] in Urine (test code = 93000-6) normal 0.2-1.0 Nitrite [Presence] in Urine by Test strip (test code = positive negative H 5802-4) Leukocyte esterase [Presence] in Urine by Automated =1 ne gative H test strip (test code = 95258-5) Erythrocytes [#/volume] in Urine by Automated count =15-19 0- 5 H (test code = 798-9) Leukocytes [#/area] in Urine sediment by Automated =15-19 0-5 H count (test code = 55837-6) Epithelial cells [Presence] in Urine sediment by Light =6-10 0-5 microscopy (test code = 94953-7) Bacteria identified in Urine by Culture (test code = tntc (4 n one detect H 630-4) Casts [#/area] in Urine sediment by Automated count none detected n one detect (test code = 58523-3) urine culture added? (test code = urine culture added?) yes [facility] - Serum or Plasma 2021-09-26 07:30:00 Test Item Value Reference Range Interpretation Comments glucose (test code = glucose) 103 mg/dL 74-106 Urea nitrogen [Mass/volume] in 15 mg/dL 6-20 Serum or Plasma (test code = 3094-0) osmolality calculated,serum (test 275 mOsm/kg 280-300 L code = osmolality calculated,serum) creatinine (test code = 0.65 mg/dL 0.50-0.90 creatinine) glomerular filtration rate (test >60.00 code = glomerular filtration rate) Urea nitrogen/Creatinine [Mass 23.1 12.0-20.0 H Ratio] in Serum or Plasma (test code = 3097-3) sodium level (test code = sodium 137 mmol/L 135-145 level) Potassium [Moles/volume] in Body 4.3 mmol/L 3.5-5.2 fluid (test code = 2821-7) chloride level (test code = 106 mmol/L 98-108 chloride level) CO2 (test code = CO2) 21 mmol/L 21-32 anion gap (test code = anion gap) 14.3 mEq/L 12.0-20.0 calcium level (test code = 8.6 mg/dL 8.6-10.0 calcium level) total protein (test code = total 6.9 g/dL 6.6-8.7 protein) albumin (test code = albumin) 4.3 g/dL 3.5-5.2 globulin (test code = globulin) 2.6 g/dL 1.5-4.5 A/G ratio (test code = A/G ratio) 1.7 >1.0 bilirubin,total (test code = 0.4 mg/dL 0.0-1.2 bilirubin,total) AST/SGOT (test code = AST/SGOT) 16 U/L 15-32 Alanine aminotransferase 13 U/L 0-33 [Enzymatic activity/volume] in Serum or Plasma (test code = 1742-6) Alkaline phosphatase [Enzymatic 77 U/L 35-105 activity/volume] in Serum or Plasma (test code = 6768-6) [facility] - Serum or Getaup0278-31-28 07:30:00 Test Item Value Reference Range Interpretation Comments cholesterol level (test code = 139 mg/dL 150-200 L cholesterol level) triglycerides level (test code = 49 mg/dL <150 triglycerides level) HDL cholesterol (test code = HDL 60 mg/dL >65 L cholesterol) LDL cholesterol direct (test code = 75 mg/dL <100 LDL cholesterol direct) cholesterol risk ratio (test code = 2.316 cholesterol risk ratio) [facility] W Reflex Culture panel - Urine 2021-09-26 07:30:00 Test Item Value Reference Range Interpretation Comments Color of Urine by Auto (test light yellow code = 65771-7) Appearance of Urine (test code clear clear = 5767-9) Glucose [Presence] in Urine by negative negative Automated test strip (test code = 16082-0) Bilirubin.total [Mass/volume] negative negative in Urine (test code = 1978-6) Ketones [Mass/volume] in Urine negative negative by Automated test strip (test code = 75448-0) Specific gravity of Urine by 1.026 1.003-1.030 Automated test strip (test code = 49343-2) blood urine (test code = blood negative negative urine) pH of Urine (test code = 7.500 5-9 2756-5) protein urine (UA) (test code = negative negative protein urine (UA)) Urobilinogen [Presence] in normal 0.2-1.0 Urine (test code = 61423-7) Nitrite [Presence] in Urine by positive negative H Test strip (test code = 5802-4) Leukocyte esterase [Presence] =1 negative H in Urine by Automated test strip (test code = 19432-3) Erythrocytes [#/volume] in =15-19 0-5 H Urine by Automated count (test code = 798-9) Leukocytes [#/area] in Urine =15-19 0-5 H sediment by Automated count (test code = 97618-2) Epithelial cells [Presence] in =6-10 0-5 Urine sediment by Light microscopy (test code = 28941-8) Bacteria identified in Urine by tntc (4 none detect H Culture (test code = 630-4) Casts [#/area] in Urine none detected none detect sediment by Automated count (test code = 73863-5) urine culture added? (test code yes = urine culture added?) [facility] GroupBacteria identified in Urine by [id number] 07:30:00Bacteria Ur CultMatarda Medical GroupComprehensive metabolic 2000 panel - Serum or [id number] 07:30:00 Test Item Value Reference Range Interpretation Comments glucose (test code = glucose) 103 mg/dL 74-106 Urea nitrogen [Mass/volume] in 15 mg/dL 6-20 Serum or Plasma (test code = 3094-0) osmolality calculated,serum (test 275 mOsm/kg 280-300 L code = osmolality calculated,serum) creatinine (test code = 0.65 mg/dL 0.50-0.90 creatinine) glomerular filtration rate (test >60.00 code = glomerular filtration rate) Urea nitrogen/Creatinine [Mass 23.1 12.0-20.0 H Ratio] in Serum or Plasma (test code = 3097-3) sodium level (test code = sodium 137 mmol/L 135-145 level) Potassium [Moles/volume] in Body 4.3 mmol/L 3.5-5.2 fluid (test code = 2821-7) chloride level (test code = 106 mmol/L 98-108 chloride level) CO2 (test code = CO2) 21 mmol/L 21-32 anion gap (test code = anion gap) 14.3 mEq/L 12.0-20.0 calcium level (test code = 8.6 mg/dL 8.6-10.0 calcium level) total protein (test code = total 6.9 g/dL 6.6-8.7 protein) albumin (test code = albumin) 4.3 g/dL 3.5-5.2 globulin (test code = globulin) 2.6 g/dL 1.5-4.5 A/G ratio (test code = A/G ratio) 1.7 >1.0 bilirubin,total (test code = 0.4 mg/dL 0.0-1.2 bilirubin,total) AST/SGOT (test code = AST/SGOT) 16 U/L 15-32 Alanine aminotransferase 13 U/L 0-33 [Enzymatic activity/volume] in Serum or Plasma (test code = 1742-6) Alkaline phosphatase [Enzymatic 77 U/L 35-105 activity/volume] in Serum or Plasma (test code = 6768-6) [facility] - [facility] or [id number] 07:30:00 Test Item Value Reference Range Interpretation Comments cholesterol level (test code = 139 mg/dL 150-200 L cholesterol level) triglycerides level (test code = 49 mg/dL <150 triglycerides level) HDL cholesterol (test code = HDL 60 mg/dL >65 L cholesterol) LDL cholesterol direct (test code = 75 mg/dL <100 LDL cholesterol direct) cholesterol risk ratio (test code = 2.316 cholesterol risk ratio) [facility], [id number] 07:30:00 Test Item Value Reference Range Interpretation Comments Gentamicin [Susceptibility] by <=2 Minimum inhibitory concentration (CELIA) (test code = 267-5) Ampicillin [Susceptibility] by >16 Minimum inhibitory concentration (CELIA) (test code = 28-1) Cefazolin [Susceptibility] by >16 Minimum inhibitory concentration (CELIA) (test code = 76-0) Trimethoprim+Sulfamethoxazole =2/38 [Susceptibility] by Minimum inhibitory concentration (CELIA) (test code = 516-5) Tetracycline [Susceptibility] by >8 Minimum inhibitory concentration (CELIA) (test code = 496-0) Amoxicillin+Clavulanate =4/2 [Susceptibility] by Minimum inhibitory concentration (CELIA) (test code = 20-8) Tobramycin [Susceptibility] by <=2 Minimum inhibitory concentration (CELIA) (test code = 508-2) Nitrofurantoin [Susceptibility] by <=16 Minimum inhibitory concentration (CELIA) (test code = 363-2) cefOXitin [Susceptibility] by <=4 Minimum inhibitory concentration (CELIA) (test code = 116-4) levoFLOXacin [Susceptibility] by >4 Minimum inhibitory concentration (CELIA) (test code = 94876-2) cefTAZidime [Susceptibility] by 4 ug/mL Minimum inhibitory concentration (CELIA) (test code = 133-9) cefTRIAXone [Susceptibility] by >32 Minimum inhibitory concentration (CELIA) (test code = 141-2) Ciprofloxacin [Susceptibility] by >2 Minimum inhibitory concentration (CELIA) (test code = 185-9) Ampicillin+Sulbactam =8/4 [Susceptibility] by Minimum inhibitory concentration (CELIA) (test code = 32-3) Ertapenem [Susceptibility] by <=0.25 Minimum inhibitory concentration (CELIA) (test code = 05148-7) Aztreonam [Susceptibility] by 4 ug/mL Minimum inhibitory concentration (CELIA) (test code = 44-8) Cefepime [Susceptibility] by Minimum 16 ug/mL inhibitory concentration (CELIA) (test code = 6644-9) Meropenem [Susceptibility] by <=0.5 Minimum inhibitory concentration (CELIA) (test code = 6652-2) Moxifloxacin [Susceptibility] by >4 Minimum inhibitory concentration (CELIA) (test code = 70605-4) Amikacin [Susceptibility] by Minimum <=8 inhibitory concentration (CELIA) (test code = 12-5) Piperacillin+Tazobactam =2/4 [Susceptibility] by Minimum inhibitory concentration (CELIA) (test code = 412-7) Ceftaroline [Susceptibility] by >1 Minimum inhibitory concentration (CELIA) (test code = 96152-1) Tigecycline [Susceptibility] by <=1 Minimum inhibitory concentration (CELIA) (test code = 80255-4) [facility] W Auto Differential panel - [id number] 00:00:00 Test Item Value Reference Range Interpretation Comments white blood count (test code = 7.7 K/uL 4.0-11.5 white blood count) red blood count (test code = red 4.59 M/uL 3.80-5.20 blood count) hemoglobin (test code = 14.3 g/dL 10.5-15.7 hemoglobin) hematocrit (test code = 43.0 % 34.0-50.0 hematocrit) MCV [Entitic volume] (test code = 93.7 fL 86.0-100.0 71216-9) mean corpuscular hemoglobin (test 31.2 pg 26.2-33.4 code = mean corpuscular hemoglobin) mean corpuscular HGB conc (test 33.3 g/dL 30.0-34.0 code = mean corpuscular HGB conc) red cell distribution width (test 12.7 % 12.0-15.5 code = red cell distribution width) platelet count (test code = 254 K/uL 165-450 platelet count) mean platelet volume (test code = 11.2 fL 9.4-12.6 mean platelet volume) Segmented neutrophils/100 52.3 % 44.4-80.1 leukocytes in Blood (test code = 60236-0) Immature granulocytes [#/volume] 0.02 K/uL 0.00-0.03 in Blood (test code = 00387-0) lymphocyte% (test code = 36.0 % 10.0-50.0 lymphocyte%) mono % (test code = mono %) 8.9 % 3.6-12.0 eos % (test code = eos %) 1.7 % 0.0-5.4 Basophils/100 leukocytes in 0.8 % 0.1-1.2 Specimen (test code = 16893-7) Band form neutrophils [#/volume] 4.05 K/uL 1.56-6.13 in Blood (test code = 96887-9) Lymphocytes [#/volume] in Specimen 2.79 K/uL 1.18-3.74 by Automated count (test code = 38437-1) mono # (test code = mono #) 0.69 K/uL 0.24-0.86 eos # (test code = eos #) 0.13 K/uL 0.04-0.36 basophil # (test code = basophil 0.06 K/uL 0.01-0.08 #) NRBC% (test code = NRBC%) 0 /100 WBC 0-0.2 NRBC# (test code = NRBC#) 0 K/uL [facility] HospitalDifferential panel, method unspecified - [id number] 00:00:00NeutrophilsBandLymphocyteAtypical LymphMonocyteEosinophilBasophilMetamyelocyteMyelocyteBlastsDifferential CommentAbs Neutrophil Count (Man)Abs Lymph Count (Man)Abs Monocyte Count (Man)Abs Eosinophil Count (Man)Abs Basophil Count (Man)Platelet EstimatePlatelet MorphologyPoikilocytosisAnisocytosisMacrocytosisOvalocytesStomatocyteToxic GranulationHypersegmented PolysRouleauMaSouthwest Mississippi Regional Medical CenterHemoglobin A1c [Mass/volume] in [id number] 00:00:00 Test Item Value Reference Range Interpretation Comments Hemoglobin A1c [Mass/volume] in Blood 5.2 % 4.0-6.0 (test code = 62857-3) [facility] HospitalThyrotropin [Units/volume] in Serum or [id number] 00:00:00 Test Item Value Reference Range Interpretation Comments Thyrotropin [Units/volume] in 1.80 uIU/mL 0.36-3.74 Serum or Plasma (test code = 3016-3) [facility] HospitalCB W Auto Differential panel - [id number] 00:00:00 Test Item Value Reference Range Interpretation Comments white blood count (test code = 7.7 K/uL 4.0-11.5 white blood count) red blood count (test code = red 4.59 M/uL 3.80-5.20 blood count) hemoglobin (test code = 14.3 g/dL 10.5-15.7 hemoglobin) hematocrit (test code = 43.0 % 34.0-50.0 hematocrit) MCV [Entitic volume] (test code = 93.7 fL 86.0-100.0 32985-9) mean corpuscular hemoglobin (test 31.2 pg 26.2-33.4 code = mean corpuscular hemoglobin) mean corpuscular HGB conc (test 33.3 g/dL 30.0-34.0 code = mean corpuscular HGB conc) red cell distribution width (test 12.7 % 12.0-15.5 code = red cell distribution width) platelet count (test code = 254 K/uL 165-450 platelet count) mean platelet volume (test code = 11.2 fL 9.4-12.6 mean platelet volume) Segmented neutrophils/100 52.3 % 44.4-80.1 leukocytes in Blood (test code = 80980-0) Immature granulocytes [#/volume] 0.02 K/uL 0.00-0.03 in Blood (test code = 43025-9) lymphocyte% (test code = 36.0 % 10.0-50.0 lymphocyte%) mono % (test code = mono %) 8.9 % 3.6-12.0 eos % (test code = eos %) 1.7 % 0.0-5.4 Basophils/100 leukocytes in 0.8 % 0.1-1.2 Specimen (test code = 22803-3) Band form neutrophils [#/volume] 4.05 K/uL 1.56-6.13 in Blood (test code = 85380-4) Lymphocytes [#/volume] in Specimen 2.79 K/uL 1.18-3.74 by Automated count (test code = 63283-4) mono # (test code = mono #) 0.69 K/uL 0.24-0.86 eos # (test code = eos #) 0.13 K/uL 0.04-0.36 basophil # (test code = basophil 0.06 K/uL 0.01-0.08 #) NRBC% (test code = NRBC%) 0 /100 WBC 0-0.2 NRBC# (test code = NRBC#) 0 K/uL [facility] HospitalDifferential panel, method unspecified - [id number] 00:00:00NeutrophilsBandLymphocyteAtypical LymphMonocyteEosinophilBasophilMetamyelocyteMyelocyteBlastsDifferential CommentAbs Neutrophil Count (Man)Abs Lymph Count (Man)Abs Monocyte Count (Man)Abs Eosinophil Count (Man)Abs Basophil Count (Man)Platelet EstimatePlatelet MorphologyPoikilocytosisAnisocytosisMacrocytosisOvalocytesStomatocyteToxic GranulationHypersegmented PolysRouleauMatagoForrest General HospitalHemoglobin A1c [Mass/volume] in [id number] 00:00:00 Test Item Value Reference Range Interpretation Comments Hemoglobin A1c [Mass/volume] in Blood 5.2 % 4.0-6.0 (test code = 95620-8) [facility] HospitalThyrotropin [Units/volume] in Serum or [id number] 00:00:00 Test Item Value Reference Range Interpretation Comments Thyrotropin [Units/volume] in 1.80 uIU/mL 0.36-3.74 Serum or Plasma (test code = 3016-3) [facility] HospitalUrinalysis macro (dipstick) panel - [id number] 16:22:47 Test Item Value Reference Range Interpretation Comments Leukocytes (test code = Negative Leukocytes) Nitrite (test code = positive Nitrite) Urobilinogen (test code = .2 Urobilinogen) Protein (test code = Negative Protein) pH (test code = pH) 5.5 Blood (test code = Blood) Hemolyzed: Trace Specific [place] (test code 1.030 = Specific [place]) Ketone (test code = Ketone) Trace Bilirubin (test code = Negative Bilirubin) Glucose (test code = Negative Glucose) Appearance (test code = Clear Appearance) Color (test code = Color) Yellow [facility] HospitalTISSUE [id number] 15:04:00Surgical Pathology Report Case: [id number] Authorizing Provider: Rajeev Poe Collected: 08:21 AM Ordering Location: [facility] Received: 01/30/2021 10:33 AM SERVICES Pathologist: Kerry House MD Specimen: Bone, RIGHT KNEE BONE FRAGMENTS- ID ONLY BONE, RIGHT KNEE, EXCISION:- FRAGMENTS OF BENIGN BONE WITH DEGENERATIVE AND REPARATIVE CHANGES. Signing Pathologist DirectPhone Line: [phone] signed by Kerry House MD on 02/01/2021 at 3:04 [id number] nondisplaced fracture of right tibial tuberosity. History of Oosgood Schlatter disease, obesity, current every day smoker. Right knee bone fragments ID onlyThe specimen is received in fixative and labeled with the patient's name, medical record number and designated as "bone" and consists of a womack-bennett irregular bone fragment (1.5 x 1.3 x 0.8 cm). Carbon Paper Interleafer sections of the bone are submitted into A1 and subsequently into decal solution. MG/pl Performed.[facility], Department of Pathology, [address] [place] [address], [facility], Department of Pathology, [address] [place] [address], BtAud[facility]. [facility], Department of Pathology, [address] [place] [address], RZ, FLUORO, NON-SPECIFIC, UP TO 1 [id number] 08:40:00Reason for exam:->[facility]UÁREZ : 1985 Sex: FFluoroscopic unit utilized for a procedure performed in the OR. No interpretation was requested. Refer to the operative report for findings. Refer to PACS for patient radiation dose information.FL fluoro non-specific up to 1 [id number] 08:40:00 Interface, External Ris In 01/30/2021 8:47 AM CDTFluoroscopic unit utilized for a procedure performed in the OR. No interpretation was requested. Refer to the operative report for findings. Refer to PACS for patient radiation dose information.[facility]ARS[facility] (Asymptomatic ONLY) 2021-01-25 13:10:00 Test Item Value Reference Interpretation Comments Range SARS-COV2/RT-PCR Negative Negative The SARS-Co V-2 (test code = target nucleic 10788-3) acids are not detected in thi s specimen. Negat keo results do not preclude SARS-C oV-2 infection and should not be u sed as the sole bas is for patient management decisions. Nega tive results must be combined with clinical observations, patient history , and epidemiolog ical information. A false negative result may occu r if a specimen is improperly collected, transported or handled. This S ARS CoV-2 test is a rapid, real-niyah e RT-PCR test intended for th e qualitative detection of nucleic acid fr om SARS-CoV-2 in a nasopharyngeal swab specimen colle imelda from individual s suspected of COVID-19 by the ir healthcare provider. CAROL (test code = This test has been CAROL) authorized by FDA under an EUA for [...] revoked sooner. Fact Sheet for Healthcare Providers: https://www.[employer]/Documents/Xp ert%20Xpress%20SAR S%20CoV-2/Fact%20S heets/302-8294%20S ARS-COV-2%20HEALTH CARE%20PROVIDERS%2 0FACT%20SHEET.pdf Fact Sheet for Healthcare Patients: https://www.[employer]/Documents/Xp ert%20Xpress%20SAR S%20CoV-2/Fact%20S heets/302-3801%20S ARS-COV-2%20PATIEN T%20FACT%20SHEET.p df Lab Interpretation Normal (test code = 92783-4) [facility]ARS-[facility]OV2/[facility] ([facility])2021-01-25 13:10:00 Test Item Value Reference Range Interpretation Comments SARS-COV2/RT-PCR Negative Negative The SARS-Co V-2 target (test code = nucleic acids a re not 2702269) detected in thi s specimen. Negative result [...] This SARS CoV-2 test is a rapid, real-time RT-PC R test intended for th e qualitative detection [...] revoked sooner. Fact Sheet for Healthcare Providers: https://www.[employer] m/Documents/Xpert%20Xpress%20SARS%20CoV-2/Fact%20Sheets/3023802%22OIDM-PJX-9%20 HEALTHCARE%20PROVIDERS%20FACT%20SHEET.pdf Fact Sheet for Healthcare Patients: https://www.[employer]/Documents/Xpert%20Xp ress%20SARS%20CoV-2/Fact%20Sheets/302-3801%95IEPV-SFS-9%20PATIENT%20FACT%20SHEET .pdfCBC with platelet count + automated [id number] 09:40:00 Test Item Value Reference Range Interpretation Comments WBC (test code = 6690-2) 9.0 See_Comment [A utomated message] The system [employer] generated this result transmitted ref erence range: 4.0 - 10 .0 K/L. The refe rence range was not u sed to interpret this result as normal/abnor mal. RBC (test code = 789-8) 4.98 See_Comment [Au tomated message] The system [employer] generated this result transmitted ref erence range: 4.00 - 5 .00 M/L. The refe rence range was not u sed to interpret this result as normal/abnor mal. MCHC (test code = 786-4) 33.9 See_Comment H [A utomated message] The system [employer] generated this result transmitted ref erence range: [...] See_Comment [Aut omated message] 777-3) The system [employer] generated this result transmitted ref erence range: 150 - 43 0 K/CU MM. The referen ce range was not u sed to interpret this result as normal/abnor mal. MPV (test code = 11.3 fL 6-11.5 07792-6) nRBC (test code = 413) 0 See_Comment [Aut omated message] The system [employer] generated this result transmitted ref erence range: [...] See_Comment [Aut omated message] 670) The system [employer] generated this result transmitted ref erence range: 1.80 - 8 .00 K/L. The refe rence range was not u sed to interpret this result as normal/abnor mal. # Lymphs (test code = 3.91 See_Comment [Auto mated message] 414) The system [employer] generated this result transmitted ref erence range: 1.48 - 4 .50 K/L. The refe rence range was not u sed to interpret this result as normal/abnor mal. # Monos (test code = 0.64 See_Comment [Autom ated message] 415) The system [employer] generated this result transmitted ref erence range: 0.00 - 1 .30 K/L. The refe rence range was not u sed to interpret this result as normal/abnor mal. # Eos (test code = 416) 0.11 See_Comment [Au tomated message] The system [employer] generated this result transmitted ref erence range: 0.00 - 0 .50 K/L. The refe rence range was not u sed to interpret this result as normal/abnor mal. # Baso (test code = 417) 0.06 See_Comment [A utomated message] The system [employer] generated this result transmitted ref erence range: 0.00 - 0 .20 K/L. The refe rence range was not u sed to interpret this result as normal/abnor mal. Immature 0 % 0-0 Granulocytes-Relative (test code = 2801) Lab Interpretation (test Abnormal code = 83558-0) [facility] W/PLT COUNT & AUTO [id number] 09:40:00 Test Item Value Reference Range Interpretation [...] 2801) XR knee 1 or 2 views [id number] 12:03:00Lateral views at 60 and 90 degrees of the right knee are reviewed. 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 There is no change noted from her previous radiographs from 10/09/2020.[facility]
[2022-05-02] MEDS ORDERED: ONDANSETRON 4 MG/2 ML VIAL ONE (22:01)
[2022-05-02] MEDS ORDERED: MORPHINE 4 MG/ML SYR ONE (22:01)
[2022-05-02] MEDS ORDERED: NA CHLORIDE 0.9% 1,000 ML ONE (22:01)
[2022-05-02 22:31] LABS: Absolute Lymphocytes (CBC) 2.9 K/uL (0.7-4.9); Hematocrit 42.4 % (36.0-45.0); Lymphocytes % 41.2 % (15.3-44.8); MCV 90.2 fL (80-100); MPV 9.8 fL (7.6-11.3)
[2022-05-02 22:39] LABS: SARS-COV-2 RT PCR NEGATIVE (NEGATIVE)
--- NOTE | 2022-05-02 22:43 | RAD REPORT ---
EXAM DESCRIPTION: CT - Abdomen Pelvis W Contrast - 05/02/2022 10:26 pm CLINICAL HISTORY: Abdominal pain COMPARISON: 2015 TECHNIQUE: Computed axial tomography of the abdomen pelvis was obtained. 100 cc Isovue-300 was admin istered intravenously. Oral contrast was not requested which limits evaluation of bowel and appendix All CT scans are performed using dose optimization technique as appropriate and may include automated exposure control or mA/KV adjustment according to patient size. FINDINGS: The liver, spleen, pancreas, adrenal and kidneys appear unremarkable. There is no evidence of diverticulitis. Normal appendix 4.5 centimeter right ovarian complex cyst. No significant free fluid. Hysterectomy Small to moderate umbilical hernia Calcified left lung granuloma IMPRESSION: 4.5 centimeter right ovarian complex cyst. No significant free fluid Followup ultrasound in a couple months recommended for re-evaluation
[2022-05-02 22:49] LABS: Albumin 3.4 g/dL (3.4-5.0); Bilirubin Total 0.4 mg/dL (0.2-1.0); Potassium 3.6 mmol/L (3.5-5.1)
--- NOTE | 2022-05-02 23:20 | EDPHYS ---
Physician Documentation [facility] Name: Itzel Del Rio Age: 37 yrs Sex: Female : 1985 Arrival Date: 05/02/2022 Time: 20:58 Bed 13 Private MD: ED Physician Mir Reddy HPI: 05/02 21:16 This 37 yrs old Female presents to ER via Ambulatory with complaints of pm1 Nausea/Vomiting/Diarrhea, Abdominal Pain, Leg Swelling. 21:16 The patient presents to the emergency department with nausea, diarrhea, Multiple times, pm1 on and off for 6 weeks, past week clear, watery, abdominal pain, of the abdomen diffusely, described as achy, crampy, and does not radiate. Onset: The symptoms/episode began/occurred 6 week(s) ago. Possible causes: unknown. The symptoms are aggravated by food , The symptoms are alleviated by nothing. Associated signs and symptoms: Pertinent positives: abdominal pain, diarrhea, nausea, Pertinent negatives: dysuria, fever. Severity of symptoms: in the emergency department the symptoms are worse. The patient has not experienced similar symptoms in the past. The patient has not recently seen a physician. 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 - Social history:: Smoking status: Patient reports the use of cigarette tobacco products, smokes one pack cigarettes per day. ROS: 21:16 Constitutional: Negative for fever, chills, and weight loss. pm1 21:16 ENT: Negative for injury, pain, and discharge, Cardiovascular: Negative for chest pain, palpitations, and edema, Respiratory: Negative for shortness of breath, cough, wheezing, and pleuritic chest pain. 21:16 Back: Negative for injury and pain, : Negative for injury, bleeding, discharge, and swelling, MS/Extremity: Negative for injury and deformity, Skin: Negative for injury, rash, and discoloration, Neuro: Negative for headache, weakness, numbness, tingling, and seizure. 21:16 Abdomen/GI: Positive for abdominal pain, nausea, diarrhea, of the abdomen diffusely, Negative for black/tarry stool, rectal pain, rectal bleeding. 21:16 All other systems are negative. Exam: 21:16 Constitutional: This is a well developed, well nourished patient who is awake, alert, pm1 and in no acute distress. Head/Face: Normocephalic, atraumatic. 21:16 Back: No spinal tenderness. No costovertebral tenderness. Full range of motion. Skin: Warm, dry with normal turgor. Normal color with no rashes, no lesions, and no evidence of cellulitis. MS/ Extremity: Pulses equal, no cyanosis. Neurovascular intact. Full, normal range of motion. 21:16 Eyes: Exam is negative for acute changes, Periorbital structures: no acute changes, Extraocular movements: no acute changes, Conjunctiva: no acute changes. 21:16 ENT: Exam is negative for acute changes, Mouth: no acute changes, Lips: normal, moist, Oral mucosa: normal, pink and intact, moist. 21:16 Cardiovascular: Exam negative for acute changes, Rate: normal, Rhythm: regular, Pulses: no pulse deficits are appreciated, Heart sounds: normal, normal S1and S2, Edema: is not appreciated. 21:16 Respiratory: Exam negative for acute changes, respiratory distress, shortness of breath. 21:16 Abdomen/GI: Inspection: obese Palpation: soft, in all quadrants, mild abdominal tenderness, in the right upper quadrant and left upper quadrant. 21:16 Neuro: Exam negative for acute changes, Orientation: is normal, Mentation: is normal, Motor: is normal, moves all fours. Vital Signs: 21:17 BP 120 / 98; Pulse 77; Resp 19; Temp 98.2(O); Pulse Ox 99% on R/A; Weight 142.88 kg; ke1 Height 5 ft. 5 in. (165.10 cm); Pain 8/10; 22:21 Pain 2/10; ke1 23:07 BP 124 / 81; Pulse 75; Resp 17; Temp 98.1(O); Pulse Ox 100% ; ke1 21:17 Body Mass Index 52.42 (142.88 kg, 165.10 cm) ke1 MDM: 21:06 Patient medically screened. pm1 23:18 Data reviewed: vital signs. Data interpreted: Pulse oximetry: on room air is 100 %. pm1 Interpretation: normal. 23:18 Counseling: I had a detailed discussion with the patient and/or guardian regarding: the pm1 historical points, exam findings, and any diagnostic results supporting the discharge/admit diagnosis, lab results, radiology results, the need for outpatient follow up, to return to the emergency department if symptoms worsen or persist or if there are any questions or concerns that arise at home. 23:18 Special discussion: I discussed with the patient the need to follow-up with the pm1 PCP/specialist for the noted incidental finding on X-ray/CT scanning. Ovarian cyst. Follow up ultrasound per recommendation by radiologist. 23:23 ED course: PMPaware reviewed. pm1 05/02 21:16 Order name: CBC with Diff; Complete Time: 22:36 pm1 05/02 21:16 Order name: CMP; Complete Time: 23:04 pm1 05/02 21:16 Order name: Lipase; Complete Time: 23:04 pm1 05/02 21:16 Order name: CT Abd/Pelvis - IV Contrast Only; Complete Time: 23:04 pm1 05/02 21:33 Order name: COVID-19/FLU A+B; Complete Time: 22:41 pm1 05/02 21:16 Order name: IV Saline Lock; Complete Time: 21:57 pm1 05/02 21:16 Order name: Labs collected and sent; Complete Time: 21:57 pm1 Administered Medications: 22:06 Drug: NS 0.9% 1000 ml Route: IV; Rate: 1 bolus; Site: left antecubital; ke1 22:06 Drug: Zofran (Ondansetron) 4 mg Route: IVP; Site: left antecubital; ke1 22:30 Follow up: no nausea ke1 22:06 Drug: morphine 4 mg Route: IVP; Infused Over: 4 mins; Site: left antecubital; ke1 22:21 Follow up: Pain 2/10 Adult; Response: Pain is decreased ke1 23:30 Drug: Bentyl (dicyclomine) 20 mg Route: IM; Site: right deltoid; ke1 23:45 Follow up: Response: No adverse reaction; Medication administered at discharge. ke1 Disposition: 05/03 03:15 Co-signature as Attending Physician, Mir Reddy MD. rn Disposition Summary: 05/02/22 23:19 Discharge Ordered Location: Home pm1 Problem: new pm1 Symptoms: have improved pm1 Condition: Stable pm1 Diagnosis - Diarrhea, unspecified pm1 - Abdominal pain, unspecified pm1 Followup: pm1 - With: Emergency Department - When: As needed - Reason: Worsening of condition Followup: pm1 - With: Private Physician - When: 2 - 3 days - Reason: Recheck today's complaints, Continuance of care, Re-evaluation by your physician Discharge Instructions: - Discharge Summary Sheet pm1 - Abdominal Pain, Adult pm1 - Food Choices to Help Relieve Diarrhea, Adult pm1 - Diarrhea, Adult pm1 - Viral Gastroenteritis, Adult pm1 Forms: - Medication Reconciliation Form pm1 - Thank You Letter pm1 - Antibiotic Education pm1 - Prescription Opioid Use pm1 Prescriptions: - ondansetron 4 mg Oral tablet,disintegrating - take 1 tablet by ORAL route every 8 hours As needed; 10 tablet; Refills: 0, pm1 Product Selection Permitted - dicyclomine 20 mg Oral Tablet - take 1 tablet by ORAL route every 6 hours As needed; 20 tablet; Refills: 0, pm1 Product Selection Permitted - Tylenol-Codeine #3 300 mg-30 mg Oral - take 2 tablet by ORAL route every 6 hours As needed; 20 tablet; Refills: 0, pm1 Product Selection Permitted Signatures: Dispatcher [employer] EDMS Mir Reddy MD MD rn Marinas, Patrick, NP HEADING PINNER pm1 Lolly Alanis, RN RN ke1
--- NOTE | 2022-05-02 23:20 | ER ---
Nurse's Notes [facility] Name: Itzel Del Rio Age: 37 yrs Sex: Female : 1985 Arrival Date: 05/02/2022 Time: 20:58 Bed 13 Private MD: Diagnosis: Diarrhea, unspecified;Abdominal pain, unspecified Presentation: 05/02 21:17 Chief complaint: Patient states: Loose stool for 6 weeks not going away, pain around ke1 belly button today. Coronavirus screen: Vaccine status: Patient reports receiving the 1st dose of the Covid vaccine. Ebola Screen: No symptoms or risks identified at this time. Initial Sepsis Screen: Does the patient meet any 2 criteria? No. Patient's initial sepsis screen is negative. Does the patient have a suspected source of infection? No. Patient's initial sepsis screen is negative. Risk Assessment: Do you want to hurt yourself or someone else? Patient reports no desire to harm self or others. Onset of symptoms. 21:17 Method Of Arrival: Wheelchair ke1 21:17 Acuity: HANANE 3 ke1 Triage Assessment: 21:20 General: Appears uncomfortable, Behavior is appropriate for age. Pain: Complains of ke1 pain in abdomen diffusely. GI: Reports loose stools. 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 - Social history:: Smoking status: Patient reports the use of cigarette tobacco products, smokes one pack cigarettes per day. Screenin:21 Abuse screen: Denies threats or abuse. Nutritional screening: No deficits noted. ke1 Tuberculosis screening: No symptoms or risk factors identified. Fall Risk None identified. Assessment: 21:21 GI: Abdomen is obese. ke1 22:06 Reassessment: CT called , patient had hysterectomy, green top at bedside. ke1 23:07 Reassessment: Patient and/or family updated on plan of care and expected duration. Pain ke1 level reassessed. Patient is alert, oriented x 3, equal unlabored respirations, skin warm/dry/pink. Patient states feeling better. Patient states symptoms have improved. Vital Signs: 21:17 BP 120 / 98; Pulse 77; Resp 19; Temp 98.2(O); Pulse Ox 99% on R/A; Weight 142.88 kg; ke1 Height 5 ft. 5 in. (165.10 cm); Pain 8/10; 22:21 Pain 2/10; ke1 23:07 BP 124 / 81; Pulse 75; Resp 17; Temp 98.1(O); Pulse Ox 100% ; ke1 21:17 Body Mass Index 52.42 (142.88 kg, 165.10 cm) ke1 ED Course: 20:58 Patient arrived in ED. ja2 21:04 Asher Solano, BEHAVIOR THERAPIST is PHCP. pm1 21:04 Mir Reddy MD is Attending Physician. pm1 21:17 Lolly Alanis, NASIM is Primary Nurse. ke1 21:20 Triage completed. ke1 21:21 Arm band placed on left wrist. ke1 21:21 Bed in low position. Call light in reach. Side rails up X 1. Side rails up X2. ke1 21:56 Inserted saline lock: 20 gauge in left antecubital area, using aseptic technique. ke1 21:56 COVID-19/FLU A+B Sent. ke1 22:27 CT Abd/Pelvis - IV Contrast Only In Process Unspecified. EDMS 23:39 No provider procedures requiring assistance completed. IV discontinued. ke1 Administered Medications: 22:06 Drug: NS 0.9% 1000 ml Route: IV; Rate: 1 bolus; Site: left antecubital; ke1 22:06 Drug: Zofran (Ondansetron) 4 mg Route: IVP; Site: left antecubital; ke1 22:30 Follow up: no nausea ke1 22:06 Drug: morphine 4 mg Route: IVP; Infused Over: 4 mins; Site: left antecubital; ke1 22:21 Follow up: Pain 2/10 Adult; Response: Pain is decreased ke1 23:30 Drug: Bentyl (dicyclomine) 20 mg Route: IM; Site: right deltoid; ke1 23:45 Follow up: Response: No adverse reaction; Medication administered at discharge. ke1 Medication: 23:39 VIS not applicable for this client. ke1 Intake: Outcome: 23:19 Discharge ordered by . pm1 23:39 Discharged to home ambulatory. ke1 23:39 Condition: good 23:39 Discharge instructions given to patient. 23:41 Patient left the ED. mw2 Signatures: Dispatcher [employer] EDAsher Albarran NP BEHAVIOR THERAPIST pm1 Sheron Welch mw2 Ria Rodríguez2 Lolly Alanis, RN RN ke1
[2022-05-02] MEDS ORDERED: DICYCLOMINE HCL 20 MG/2 ML AMP IM ONE (23:28)
[2022-05-02 23:48] VITALS: BP 124/81; TEMP 98.1; O2SAT 100
== END 2022-05-02 23:41 | disposition home or self-care (01) ==
LOC: ER 20:55
DX: R19.7 Diarrhea, unspecified (principal); R10.9 Unspecified abdominal pain; F17.210 Nicotine dependence, cigarettes, uncomplicated; Z20.822 Contact with and (suspected) exposure to COVID-19; Z88.5 Allergy status to narcotic agent
CPT/HCPCS: 85025; 36415; 82565; 83690; 80053; 0240U; 74177; 96375; 96372; 96374; 99284; Q9967; J0500; J7030; J2405